=== PATIENT | female | born 1950 | race Caucasian/White ===

== ENCOUNTER → 2016-06-08 | Outpatient (CLI) | payer BC | END | disposition home or self-care (01) | LOC: PCVCIMAG 13:07 | PROVIDERS: ATTEND Nuclear Medicine Nuclear Cardiology | DX: I70.201 Unspecified atherosclerosis of native arteries of extremities, right leg (principal); I25.10 Atherosclerotic heart disease of native coronary artery without angina pectoris; I10 Essential (primary) hypertension; I65.23 Occlusion and stenosis of bilateral carotid arteries; E78.00 Pure hypercholesterolemia, unspecified; J84.112 Idiopathic pulmonary fibrosis; Z95.820 Peripheral vascular angioplasty status with implants and grafts | CPT/HCPCS: 93880; 93926 ==

== ENCOUNTER → 2016-07-15 | Outpatient (CLI) | payer BC ==
[~2016-07-15] MED LIST: CEFAZOLIN 2GM PREMIX 50 ML IV ONE; DIAZEPAM 10 MG TABLET ONE; EPTIFIBATIDE BOLUS 2,000 MCG/ML 10ML VIAL. IV ONE; FENTANYL PF 100 MCG/2 ML VIAL. ONE; HEPARIN 5,000 UNIT/ML VIAL for PCVC ONE; IODIXANOL 270 MG/ML 100 ML VIAL. ONE; IV NORMAL SALINE 1000ML BAG 1,000 ML ONE; IV NORMAL SALINE 500ML BAG 500 ML ONE; LIDOCAINE 1% Multi-Dose 20 ML VIAL. ONE; MIDAZOLAM HCL 2 MG/2 ML VIAL. ONE
== END ==
LOC: PCVCINTER 07:48
PROVIDERS: ATTEND Nuclear Medicine Nuclear Cardiology
DX: I74.3 Embolism and thrombosis of arteries of the lower extremities (principal); I70.202 Unspecified atherosclerosis of native arteries of extremities, left leg; I70.0 Atherosclerosis of aorta
CPT/HCPCS: 36252; 37186; 37228; 37231; 75716; 76937; C1725; C1751; C1757; C1760; C1769; C1876; C1885; C1894; J0690; J1327; J1644; J2250; J3010; J7030; J7040

== ENCOUNTER → 2016-08-27 | Outpatient (CLI) | payer BC | END | disposition home or self-care (01) | LOC: PCVCIMAG 12:24 | PROVIDERS: ATTEND Internal Medicine Cardiovascular Disease | DX: I70.212 Atherosclerosis of native arteries of extremities with intermittent claudication, left leg (principal) | CPT/HCPCS: 93926; G0463 ==

== ENCOUNTER → 2016-08-31 | Outpatient (CLI) | payer BC ==
[~2016-08-31] MED LIST changes: -CEFAZOLIN 2GM PREMIX 50 ML IV ONE; -DIAZEPAM 10 MG TABLET ONE; +DIAZEPAM 10 MG TABLET. ONE; -FENTANYL PF 100 MCG/2 ML VIAL. ONE; -HEPARIN 5,000 UNIT/ML VIAL for PCVC ONE; +HEPARIN SODIUM 5,000 UNIT/ML VIAL for PCVC. ONE; +HYDROcodone/APAP 5/325MG 1 TAB TABLET ONE; +IOHEXOL 350 MG/ML 100 ML VIAL. ONE; +IOHEXOL 350 MG/ML 50 ML VIAL. ONE; -MIDAZOLAM HCL 2 MG/2 ML VIAL. ONE; +MIDAZOLAM HCL/PF 2 MG/2 ML VIAL. ONE; +fentaNYL PF VIAL 100 MCG/2 ML VIAL ONE; +hydrALAZINE 20 MG/ML VIAL. ONE
== END | disposition home or self-care (01) ==
LOC: PCVCINTER 08:12
PROVIDERS: ATTEND Nuclear Medicine Nuclear Cardiology
DX: I25.10 Atherosclerotic heart disease of native coronary artery without angina pectoris (principal); I70.212 Atherosclerosis of native arteries of extremities with intermittent claudication, left leg
CPT/HCPCS: 36252; 37186; 37229; 37232; 37234; 75716; 76937; 93459; C1725; C1751; C1757; C1760; C1769; C1876; C1885; C1894; J0690; J1327; J1644; J2250; J3010; J7030; J7040; Q9967; 37228; 37230; 99152; 99153; J0360

== ENCOUNTER → 2016-12-09 | Outpatient (CLI) | payer BC ==
--- NOTE | 2016-12-10 00:06 | PCVCIMAG ---
EXAM: LEFT LOWER EXTREMITY ARTERIAL DUPLEX INDICATION: Peripheral Arterial Disease. Leg pain. FINDINGS: Left Leg: Satisfactory arterial waveforms in the common femoral and profunda femoral artery throughout the superficial femoral artery and popliteal artery. Previous stent mid and distal superficial femoral artery maintaining good patency. Previous tibioperoneal trunk stent is patent. Posterior tibial artery is occluded throughout. The peroneal artery and anterior tibial artery are patent. IMPRESSION: Previous left superficial femoral artery and tibioperoneal trunk stents are maintaining satisfactory patency. Unchanged occlusion of the left posterior tibial artery. LOC:[id number]
== END | disposition home or self-care (01) ==
LOC: PCVCIMAG 14:54
PROVIDERS: ATTEND Internal Medicine Cardiovascular Disease
DX: I77.1 Stricture of artery (principal); I73.9 Peripheral vascular disease, unspecified; I10 Essential (primary) hypertension; I25.10 Atherosclerotic heart disease of native coronary artery without angina pectoris; I77.9 Disorder of arteries and arterioles, unspecified; E78.00 Pure hypercholesterolemia, unspecified; J44.9 Chronic obstructive pulmonary disease, unspecified; K21.9 Gastro-esophageal reflux disease without esophagitis; I65.23 Occlusion and stenosis of bilateral carotid arteries; Z95.1 Presence of aortocoronary bypass graft; Z90.710 Acquired absence of both cervix and uterus; Z87.891 Personal history of nicotine dependence; Z88.2 Allergy status to sulfonamides; Z88.8 Allergy status to other drugs, medicaments and biological substances
CPT/HCPCS: 93005; 93926; G0463

== ENCOUNTER → 2016-12-28 | Outpatient (CLI) | payer BC ==
--- NOTE | 2016-12-28 20:33 | PCVCIMAG ---
APPROVED REPORT Exam: Nuclear Stress Test BMI: 0 NM EXAM: Myocardial Perfusion REST/STRESS Imaging Protocol: Rest Tc-99m/Stress Tc-99m 1 day Resting Data Rest SPECT myocardial perfusion imaging was performed in supine position 45 minutes following the intravenous injection of 11.3 mCi of Tc-99m Sestamibi. Time of rest injection: 0830 Date: 12/28/2016 Pharmacologic Stress Pharmacologic stress test was performed by injecting Regadenoson 0.4 mg IV push followed by the intravenous injection of 30 mCi of Tc-99m Sestamibi. Time of stress injection: 1000 Date: 12/28/2016 The images were gated to evaluate regional wall motion and calculate left ventricular ejection fraction. Study Quality Study: Good Study Data Post stress, the left ventricular ejection was 67%.. SSS: 0 SRS: 0 SDS: 0 TID = 0.88. Perfusion No evidence of stress induced ischemia or prior myocardial infarction. Wall Motion Normal left ventricular size and function with no regional wall motion abnormalities. Nuclear Conclusion No evidence of stress induced ischemia or prior myocardial infarction. Normal left ventricular size and function with no regional wall motion abnormalities. Post stress, the left ventricular ejection was 67%.. No prior study available for comparison. Interpreted by: Paramjit Reich MD Electronically Approved: 12/28/2016 12:13:36 Stress Test Details Stress Test: Pharmacologic stress was paired with low level exercise. Reason for pharmacologic stress test: physical limitation. HR Resting HR: 89 bpmMax Heart Rate (APMHR): 156 bpm Max HR Achieved: 127 bpmTarget HR (85% APMHR): 132 bpm % of APMHR: 81 Recovery HR: 103 bpm BP Resting BP: 169/86 mmHg Max BP: 132/80 mmHg ECG Resting ECG: Sinus Rhythm Stress ECG: Sinus Tachycardia ST Change: Horizontal ST depression Maximum ST Deviation: 1.0 mm Arrhythmia: None Recovery ECG: Sinus Rhythm Clinical Reason for Termination: Completed protocol Stress Symptoms: Leg, Fatigue, Lightheaded Exercise duration: 4 min 0 sec Exercise capacity: 1.6 METs Symptoms resolved during recovery. Stress ECG Conclusion ECG: Non-ischemic <Conclusion> ECG: Non-ischemic
== END | disposition home or self-care (01) ==
LOC: PCVCIMAG 08:05
PROVIDERS: ATTEND Internal Medicine Cardiovascular Disease
DX: I25.10 Atherosclerotic heart disease of native coronary artery without angina pectoris (principal); E78.5 Hyperlipidemia, unspecified; I10 Essential (primary) hypertension; I73.9 Peripheral vascular disease, unspecified; J44.9 Chronic obstructive pulmonary disease, unspecified; Z87.891 Personal history of nicotine dependence; K52.9 Noninfective gastroenteritis and colitis, unspecified
CPT/HCPCS: 78452; 93017; A9500

== ENCOUNTER → 2017-07-25 | Outpatient (CLI) | payer BC | END | disposition home or self-care (01) | LOC: PCVCIMAG 12:26 | DX: I25.10 Atherosclerotic heart disease of native coronary artery without angina pectoris (principal); I10 Essential (primary) hypertension; I73.9 Peripheral vascular disease, unspecified; E78.01 Familial hypercholesterolemia; I77.9 Disorder of arteries and arterioles, unspecified; K21.9 Gastro-esophageal reflux disease without esophagitis; R09.89 Other specified symptoms and signs involving the circulatory and respiratory systems; J44.9 Chronic obstructive pulmonary disease, unspecified; Z95.1 Presence of aortocoronary bypass graft; Z87.891 Personal history of nicotine dependence; Z98.890 Other specified postprocedural states; Z79.82 Long term (current) use of aspirin; Z79.899 Other long term (current) drug therapy | CPT/HCPCS: 80061; 93005; 93880; 93925; G0463 ==

== ENCOUNTER → 2018-02-21 | Outpatient (CLI) | payer BC, MEDICARE | END | disposition home or self-care (01) | LOC: PCVCCLINIC 13:02 | PROVIDERS: ATTEND Internal Medicine Cardiovascular Disease | DX: I25.10 Atherosclerotic heart disease of native coronary artery without angina pectoris (principal); E78.00 Pure hypercholesterolemia, unspecified; I73.9 Peripheral vascular disease, unspecified; J84.112 Idiopathic pulmonary fibrosis; I65.23 Occlusion and stenosis of bilateral carotid arteries; E78.1 Pure hyperglyceridemia; I10 Essential (primary) hypertension; R07.89 Other chest pain; Z95.1 Presence of aortocoronary bypass graft; Z87.891 Personal history of nicotine dependence; Z98.890 Other specified postprocedural states; Z79.82 Long term (current) use of aspirin | CPT/HCPCS: 80061; 93005; G0463 ==

== ENCOUNTER → 2018-02-21 | Outpatient (CLI) | payer BC | END | disposition home or self-care (01) | LOC: PCVCCLINIC 12:50 | PROVIDERS: ATTEND Internal Medicine Cardiovascular Disease | DX: I25.10 Atherosclerotic heart disease of native coronary artery without angina pectoris (principal); E78.00 Pure hypercholesterolemia, unspecified; I73.9 Peripheral vascular disease, unspecified; J84.112 Idiopathic pulmonary fibrosis; I65.23 Occlusion and stenosis of bilateral carotid arteries; E78.1 Pure hyperglyceridemia; I10 Essential (primary) hypertension; R07.89 Other chest pain; J44.9 Chronic obstructive pulmonary disease, unspecified; K21.9 Gastro-esophageal reflux disease without esophagitis; Z95.1 Presence of aortocoronary bypass graft; Z87.891 Personal history of nicotine dependence; Z79.82 Long term (current) use of aspirin | CPT/HCPCS: 80061; 93005; G0463 ==

== ENCOUNTER → 2018-02-21 | Outpatient (CLI) | payer BC ==
--- NOTE | 2018-02-21 12:54 | PCVCIMAG ---
APPROVED REPORT Study performed: 02/21/2018 11:38:07 EXAM: Comprehensive 2D, Doppler, and color-flow Echocardiogram Patient Location: Echo lab Status: routine BSA: 1.76 HR: 62 bpmBP: 122/76 mmHg Rhythm: NSR Other Information Study Quality: Technically Limited Risk Factors: Cardiac Risk Factors: Smoking Indications CAD CABG, Pulmonary fibrosis. 2D Dimensions RVDd: 25.15 mm IVSd: 12.75 (7-11mm)LVOT Diam: 17.89 (18-24mm) LVDd: 46.41 mm PWd: 12.70 (7-11mm)Ascending Ao: 32.05 (22-36mm) LVDs: 33.20 (25-40mm) Left Atrium: 44.24 (27-40mm) Aortic Root: 25.94 mm LV Single Plane 4CH: 48.09 % LV Single Plane 2CH: 51.42 % Biplane EF: 49.8 % Volumes Left Atrial Volume (Systole) Single Plane 4CH: 28.82 mLSingle Plane 2CH: 45.45 mL LA ESV Index: 22.00 mL/m2 Aortic Valve AoV Peak Rajeev.: 1.54 m/s AO Peak Gr.: 9.50 mmHgLVOT Max P.24 mmHg LVOT Mean P.58 mmHg LVOT Max V: 1.14 m/s LVOT V1 VTI: 26.22 cm SUKHDEEP Vmax: 1.86 cm2 Mitral Valve E/A Ratio: 1.3 MV Decel. Time: 139.14 ms MV E Max Rajeev.: 1.21 m/s MV A Rajeev.: 0.96 m/s MV PHT: 40.35 ms Pulmonary Valve PV Peak Gr.: 2.08 mmHg Tricuspid Valve TR Peak Rajeev.: 3.46 m/s TR Peak Gr.: 47.75 mmHg Left Ventricle The left ventricle is normal size. There is normal LV segmental wall motion. There is normal left ventricular wall thickness. Left ventricular systolic function is normal. The left ventricular ejection fraction is within the normal range. LVEF is 45%-50%. The left ventricular diastolic function is normal. Right Ventricle The right ventricle is normal size. The right ventricular systolic function is normal. Atria The left atrium size is normal. The right atrium size is normal. Aortic Valve The aortic valve is normal in structure. Trace aortic regurgitation. There is no aortic valvular stenosis. Mitral Valve Mild mitral annular calcification. Moderate mitral regurgitation. No evidence of mitral valve stenosis. Tricuspid Valve The tricuspid valve is normal in structure. Moderate tricuspid regurgitation. Pulmonary artery pressure is 55mmHg. Pulmonic Valve The pulmonary valve is normal in structure. There is no pulmonic valvular regurgitation. Great Vessels The aortic root is normal in size. IVC is normal in size and collapses >50% with inspiration. Pericardium There is no pericardial effusion. <Conclusion> The left ventricle is normal size. LVEF is 45%-50%. The left ventricular diastolic function is normal. The right ventricle is normal size. The left atrium size is normal. The right atrium size is normal. Trace aortic regurgitation. Mild mitral annular calcification. Moderate mitral regurgitation. Moderate tricuspid regurgitation. Pulmonary artery pressure is 55mmHg. The aortic root is normal in size. There is no pericardial effusion.
== END | disposition home or self-care (01) ==
LOC: PCVCIMAG 12:39
PROVIDERS: ATTEND Internal Medicine Cardiovascular Disease
DX: I25.10 Atherosclerotic heart disease of native coronary artery without angina pectoris (principal); I08.1 Rheumatic disorders of both mitral and tricuspid valves; F17.200 Nicotine dependence, unspecified, uncomplicated
CPT/HCPCS: 93306

== ENCOUNTER → 2018-03-09 | Outpatient (CLI) | payer BC, MEDICARE ==
[~2018-03-09] MED LIST changes: -DIAZEPAM 10 MG TABLET. ONE; -EPTIFIBATIDE BOLUS 2,000 MCG/ML 10ML VIAL. IV ONE; -HEPARIN SODIUM 5,000 UNIT/ML VIAL for PCVC. ONE; -HYDROcodone/APAP 5/325MG 1 TAB TABLET ONE; -IODIXANOL 270 MG/ML 100 ML VIAL. ONE; -IOHEXOL 350 MG/ML 100 ML VIAL. ONE; -IOHEXOL 350 MG/ML 50 ML VIAL. ONE; -IV NORMAL SALINE 1000ML BAG 1,000 ML ONE; -IV NORMAL SALINE 500ML BAG 500 ML ONE; -LIDOCAINE 1% Multi-Dose 20 ML VIAL. ONE; -MIDAZOLAM HCL/PF 2 MG/2 ML VIAL. ONE; +REGADENOSON 0.4 MG/5 ML DISP.SYRIN. IV ONE; -fentaNYL PF VIAL 100 MCG/2 ML VIAL ONE; -hydrALAZINE 20 MG/ML VIAL. ONE
--- NOTE | 2018-03-09 18:39 | PCVCIMAG ---
APPROVED REPORT Imaging Protocol: Rest Tc-99m/Stress Tc-99m 1 day Study performed: 03/09/2018 08:35:06 Indication: CAD, Chest Heaviness Patient Location: Out-Patient Stress Nurse: Sarah Yang RN, Zeny Nguyen RN MT Tech:DARCY Royal Ht: 5 ft 3 in Wt: 160 lbs BSA: 1.76 m2 HR: 73 bpm BP: 189/91 mmHg BMI: 28.3 Rhythm: Sinus Rhythm, Nonspecific T-wave changes Medical History Medications: ASA, Repatha, Vascepa, Metoprolol, Effient, Quinapril Allergies: Statins, Sulfas Cardiac Risk Factors: Age, HTN, Hyperlipidemia, Tobacco History (Former), CAD, PVD Previous Cardiac Procedures: CABG(2005), PCI() Pretest Chest Pain Characteristics: No chest pain Exercise History: Physically active Meds Held (24 hrs): Metoprolol Resting Data Rest SPECT myocardial perfusion imaging was performed in supine position 45 minutes following the intravenous injection of 11.4 mCi of Tc-99m Sestamibi. Time of rest injection: 0800 Date: 03/09/2018 Administration Route: IV Administration Site: Right Wrist Pharmacologic Stress Pharmacologic stress test was performed by injecting Regadenoson 0.4 mg IV push over 10-15 seconds immediately followed by the intravenous injection of 32.3 mCi of Tc-99m Sestamibi. Time of stress injection: 0930 Date: 03/09/2018 Administration Route: IV Administration Site: Right Wrist Gated Stress SPECT was performed 45 minutes after stress injection. The images were gated to evaluate regional wall motion and calculate left ventricular ejection fraction. Comments Prior Nuc 2016: Non-Ischemic Pt has IPF(Idiopathic Pulmonary Fibrosis) and had difficulty with coughing throughout scan. Stress Test Details Stress Test: Pharmacologic stress testing performed using 0.4 mg of regadenoson per 5 mL given IV over 10 seconds. Reason for pharmacologic stress test: Lung Disease. HRMax Heart Rate (APMHR): 154 bpm Resting HR: 73 bpmTarget HR (85% APMHR): 130 bpm Max HR Achieved: 113 bpm % of APMHR: 73 Recovery HR: 108 bpm BP Resting BP: 189/91 mmHg Max BP: 120/53 mmHg Recovery BP: 127/61 mmHg ECG Resting ECG: Sinus Rhythm, nonspecific T abnormalities Stress ECG: Sinus Tachycardia, Sinus Arrhythmia Recovery ECG: Sinus Tachycardia - Atrial Tachycardia Clinical Reason for Termination: Completed protocol Stress Symptoms: Dyspnea, Lightheaded Exercise duration: 0 min 55 sec Symptoms resolved with caffeine. Stress ECG Conclusion ECG: Non-ischemic Study Quality Study: Good Study Data Post stress, the left ventricular ejection was 62%.. SSS: 10 SRS: 10 SDS: 3 TID = 0.56. Perfusion Medium sized area of moderate reversible ischemia involving the lateral left ventricle consistent with a circumflex or diagonal distribution. Wall Motion Normal left ventricular size and function with no regional wall motion abnormalities. Nuclear Conclusion Medium sized area of moderate reversible ischemia involving the lateral left ventricle consistent with a circumflex or diagonal distribution has developed since December 2016. Normal left ventricular size and function with no regional wall motion abnormalities. Post stress, the left ventricular ejection was 62%. Interpreted by: Paramjit Reich MD Electronically Approved: 03/09/2018 13:04:36 <Conclusion> ECG: Non-ischemic
== END | disposition home or self-care (01) ==
LOC: PCVCIMAG 08:03
PROVIDERS: ATTEND Internal Medicine Cardiovascular Disease
DX: I25.10 Atherosclerotic heart disease of native coronary artery without angina pectoris (principal); I10 Essential (primary) hypertension; R07.89 Other chest pain; K21.9 Gastro-esophageal reflux disease without esophagitis; F32.9 Major depressive disorder, single episode, unspecified; E78.00 Pure hypercholesterolemia, unspecified; E78.5 Hyperlipidemia, unspecified; Z87.891 Personal history of nicotine dependence; Z88.2 Allergy status to sulfonamides; Z90.710 Acquired absence of both cervix and uterus
CPT/HCPCS: 78452; 93017; A9500; J2785

== ENCOUNTER → 2018-10-04 | Outpatient (CLI) | payer BC, MEDICARE | END | disposition home or self-care (01) | LOC: PCVCCLINIC 09:30 | PROVIDERS: ATTEND Internal Medicine Cardiovascular Disease | DX: I25.10 Atherosclerotic heart disease of native coronary artery without angina pectoris (principal); E78.00 Pure hypercholesterolemia, unspecified; I65.23 Occlusion and stenosis of bilateral carotid arteries; J84.112 Idiopathic pulmonary fibrosis; I10 Essential (primary) hypertension; I73.9 Peripheral vascular disease, unspecified; R94.2 Abnormal results of pulmonary function studies; K21.9 Gastro-esophageal reflux disease without esophagitis; J44.9 Chronic obstructive pulmonary disease, unspecified; Z95.1 Presence of aortocoronary bypass graft; Z88.1 Allergy status to other antibiotic agents; Z88.8 Allergy status to other drugs, medicaments and biological substances; Z79.82 Long term (current) use of aspirin; Z87.891 Personal history of nicotine dependence | CPT/HCPCS: 36415; 80061; 93005; G0463 ==

== ENCOUNTER → 2018-11-24 | Outpatient (CLI) | payer BC, MEDICARE ==
--- NOTE | 2018-11-24 12:59 | PCVCIMAG ---
EXAM: BILATERAL LOWER EXTREMITY ARTERIAL DUPLEX INDICATION: Peripheral Arterial Disease. Leg pain. FINDINGS: Right Leg: Satisfactory arterial waveforms throughout the common/profunda/superficial femoral, popliteal, anterior tibial, peroneal, and posterior tibial arteries. No flow limiting stenosis seen. Previous stent mid/distal superficial femoral artery maintaining good patency. Left Leg: Common femoral profunda femoral arteries are patent. Increased systolic velocity 258 cm/s from 63 cm/s consistent with a 70% stenosis in the distal kiana superficial femoral artery. Previous stent mid/distal superficial femoral artery is patent. Popliteal artery is patent. Unchanged occlusion throughout the posterior tibial artery. Tibioperoneal trunk stent maintaining good patency. Anterior tibial artery is patent. IMPRESSION: No flow limiting stenosis in the right lower extremity. Previous stent mid/distal right superficial femoral artery maintaining good patency. Previous stent mid/distal left superficial femoral artery maintaining satisfactory patency. Distal to the distal margin of the prior left superficial femoral artery stent is an area of 70% stenosis which has developed since 2018 study. Previous left tibioperoneal trunk stent maintaining good patency. LOC:[id number]
--- NOTE | 2018-11-24 13:42 | PCVCIMAG ---
APPROVED REPORT Study performed: 11/24/2018 11:37:29 Exam: Stress Echocardiogram Indication: CAD s/p CABG,idiopathic pulmonary fibrosis Patient Location: Echo lab Stress Nurse: Sarah Yang RN Room #: 1 Status: routine Ht: 5 ft 3 in HR: 75 bpm BP: 138/84 mmHg Rhythm: NSR Medical History Medical History: CAD s/p CABG, Pulmonary fibrosis Cardiac Risk Factors: HTN, Hyperlipidemia Previous Cardiac Procedures: CABG Exercise History: Indeterminate Physical Disabilities: lung disease Procedure The patient underwent an Exercise Stress Test using the Dennis Protocol. Blood pressure, heart rate, and EKG were monitored. An Echocardiogram was performed by quality lab technician in four stages in quad fashion. At peak stress, four selected images were obtained and placed side by side with resting images for comparison. Stress Test Details Stress Test: Exercise stress testing was performed using a Dennis protocol. HR Resting HR: 75 bpmMax Heart Rate (APMHR): 154 bpm Max HR Achieved: 134 bpmTarget HR (85% APMHR): 130 bpm % of APMHR: 87 Recovery HR: 90 bpm HR response to stress: Normal HR response to stress BP Resting BP: 138/84 mmHg Max BP: 158/80 mmHg Recovery BP: 148/78 mmHg BP response to stress: Normal blood pressure response to stress. ECG Resting ECG: Sinus Rhythm Stress ECG: Sinus Rhythm, nonspecific ST-T abnormalities ST Change: Non-ischemic Maximum ST Deviation: -1.5 mm Arrhythmia: PSVC short run,and isolated, Rare PVCs Recovery ECG: Sinus Rhythm Recovery ST Change: Nondiagnostic ST changes Recovery ST Deviation: -1.25 mm Clinical Reason for Termination: Maximal effort Stress Symptoms: Dyspnea, Leg Fatigue Exercise duration: 5 min 00 sec Highest Stage Achieved: Stage 2: 2.5 mph at 12% grade. Exercise capacity: 7.0 METs Overall Exercise Capacity for Age: Poor Scale: Sedentary Angina Score: None No complications. Stress ECG Conclusion The patient exercised according to the EDNNIS protocol for 5:00 mins; achieving a work level of METS. The resting heart rate of 75 bpm greg to a maximum heart rate of 134 bpm. This value represent 87% of the maximal, age-predicted heart rate. The resting blood pressure of 138/84 mmHg, greg to a maximum blood pressure of 158/80 mmHg. The exercise test was stopped due to dyspnea and fatigue. Ribeiro Treadmill Score is 12.5 which is Low risk. Pre-Stress Echo The resting Echocardiogram showed normal left ventricular contractility with an estimated Ejection Fraction of about 50-55%. Normal wall motion in all segments on baseline images. Post-Stress Echo The stress Echocardiogram showed normal left ventricular contractility with an estimated Ejection Fraction of about 65-70%. Normal augmentation of wall motion in all segments on post stress images. Clinical No clinical or ECG evidence for ischemia. Conclusion Clinical Response: Non-ischemic Exercise Capacity: Below Average Stress ECG Response: Non-ischemic Stress Echo Images: Non-ischemic No echocardiographic evidence for exercise induced ischemia. No clinical, EKG or echocardiographic evidence for ischemia. Normal stress echocardiogram with maximal exercise stress. <Conclusion> No echocardiographic evidence for exercise induced ischemia. No clinical, EKG or echocardiographic evidence for ischemia. Normal stress echocardiogram with maximal exercise stress.
== END | disposition home or self-care (01) ==
LOC: PCVCIMAG 09:47
PROVIDERS: ATTEND Internal Medicine Cardiovascular Disease
DX: I73.9 Peripheral vascular disease, unspecified (principal); I25.10 Atherosclerotic heart disease of native coronary artery without angina pectoris; I27.29 Other secondary pulmonary hypertension; J98.2 Interstitial emphysema; J98.4 Other disorders of lung; R06.09 Other forms of dyspnea
CPT/HCPCS: 93325; 93351; 93925